=== PATIENT | female | born 1985 | race Hispanic/Latino ===

== ENCOUNTER 2025-03-03 02:42 | Inpatient (IN) | payer SELFPAY ==
[2025-03-03] MEDS ORDERED: Ondansetron PF 4 MG/2 ML Vial ONE (03:35)
[2025-03-03 03:59] LABS: #Basophils 0.06 10x3/uL (0.0-0.2); #Eosinophils 0.14 10x3/uL (0.0-0.7); #Monocytes 0.48 10x3/uL (0.11-0.59); #Neutrophils 4.27 10x3/uL (1.40-6.50); %Basophils 0.8 % (0.0-1.0); %Eosinophils 1.9 % (0.0-10.0); %Lymphocytes 31.2 % (21.0-51.0); %Monocytes 6.6 % (0.0-10.0); %Neutrophils 59.1 % (42.0-75.0); Hematocrit 23.2 % (36.0-47.0); Hemoglobin 6.0 g/dL (12.0-16.0); Mean Corpuscular Hemoglobin 15.6 pg (27.0-31.0); Mean Corpuscular Volume 60.4 fL (78.0-98.0); Platelet Count 267 10x3/uL (130-400); Red Blood Cell (RBC) Count 3.84 mill/uL (4.20-5.40); Reflex for Review?? YES; White Blood Cell (WBC) Count 7.24 10x3/uL (4.8-10.8)
[2025-03-03 04:06] LABS: ALT (SGPT) 13 U/L (Less than 34); AST (SGOT) 38 U/L (11-34); Albumin 3.9 g/dL (3.1-4.5); Alkaline Phosphatase 51 U/L (40-110); Anion Gap 14 mmol/L (10-20); BUN (Urea Nitrogen) 10 mg/dL (7.0-18.7); Bilirubin, Total 0.4 mg/dL (0.3-1.2); Calc. Creatinine Clearance 0 mL/min (70-130); Calcium 8.4 mg/dL (7.8-10.44); Carbon Dioxide 18 mmol/L (22-29); Chloride 110 mmol/L (98-107); Globulin 2.7 g/dL (2.4-3.5); Glucose 86 mg/dL (70-105); Potassium 3.0 mmol/L (3.5-5.1); Sodium 139 mmol/L (136-145)
[2025-03-03 04:07] LABS: Acetaminophen Less than 10 mcg/mL (Less than 10); Salicylate Less than 8.0 mg/dL (Less than 8.0)
[2025-03-03 04:10] LABS: BHCG - Serum Negative (NEGATIVE); Pregs Control Background? CLEAR/WHITE (CLR/WHITE); Pregs Control Bar Appear? YES (CONTROL BAR)
[2025-03-03 04:20] LABS: Anisocytosis SLIGHT = 6-15 cells HPF (0-5); Microcytosis SLIGHT = 6-15 cells HPF (0-5); Nucleated RBC (Manual Ct) 1 % (0); Ovalocytes SLIGHT = 2-5 cells HPF (0-1); Platelet Adequacy Comment Platelets Normal; Polychromasia SLIGHT = 2-3 cells HPF (0-2); Smudge Cells 4.1 %
[2025-03-03] MEDS ORDERED: Potassium Bicarbonate/Cit Ac 20 MEQ TAB ONE (04:22)
[2025-03-03 04:53] LABS: #Basophils 0.06 10x3/uL (0.0-0.2); #Eosinophils 0.06 10x3/uL (0.0-0.7); #Monocytes 0.38 10x3/uL (0.11-0.59); #Neutrophils 4.92 10x3/uL (1.40-6.50); %Basophils 0.9 % (0.0-1.0); %Eosinophils 0.9 % (0.0-10.0); %Lymphocytes 20.0 % (21.0-51.0); %Monocytes 5.6 % (0.0-10.0); %Neutrophils 72.2 % (42.0-75.0); Hematocrit 24.8 % (36.0-47.0); Hemoglobin 6.3 g/dL (12.0-16.0); Mean Corpuscular Hemoglobin 15.4 pg (27.0-31.0); Mean Corpuscular Volume 60.8 fL (78.0-98.0); Platelet Count 248 10x3/uL (130-400); Red Blood Cell (RBC) Count 4.08 mill/uL (4.20-5.40); White Blood Cell (WBC) Count 6.81 10x3/uL (4.8-10.8)
[2025-03-03 05:05] LABS: Bacteria/HPF None Seen HPF (None Seen); CAUTI Indications for Culture Dysuria,urgency,freq; Glucose, Urine (Dipstick) Normal (Negative); Leukocyte 25 Leu/uL (Negative); Protein, Urine (Dipstick) Negative (Neg-Trace); RBC/HPF 0-3 HPF (0-3); Specific Gravity, Urine 1.027 (1.002-1.036); WBC/HPF 0-3 HPF (0-3)
[2025-03-03 05:13] LABS: Cocaine Metabolite Screen Negative (Negative); THC/Cannabinoid Screen Negative (Negative); Tricyclic Screen Negative (Negative)
[2025-03-03 05:15] LABS: Urine Culture Reflex No No
[2025-03-03 05:46] LABS: Iron 9 ug/dL (50-170); Iron Binding Capacity, Total 404 mcg/dL (265-497)
[2025-03-03] MEDS ORDERED: Calcium Carbonate 500 MG ChewTAB PO PRN (06:40)
[2025-03-03] MEDS ORDERED: Ondansetron PF 4 MG/2 ML Vial IVP PRN (06:40)
[2025-03-03] MEDS ORDERED: Electrolyte Replacement Protocol 1 EACH FS SCH (06:45)
[2025-03-03] MEDS ORDERED: Magnesium 2 GM/50 ML(in water) 2 GM in Premix 1 BAG IVPB PRN (07:15)
[2025-03-03] MEDS ORDERED: PHOS-NAK 1 PKT PACK PO PRN (07:15)
[2025-03-03] MEDS ORDERED: Potassium Chloride 20 MEQ in Premix 1 BAG IVPB PRN (07:15)
[2025-03-03] MEDS ORDERED: Iopamidol 370 76% 100 ML VIAL ONE (09:19)
[2025-03-03] MEDS ORDERED: Sodium Ferric Gluconate 250 MG in Sodium Chloride 0.9% 250 ML 250 ML IVPB SCH (12:00)
[2025-03-03 12:23] VITALS: BMI 27.1
[2025-03-03] MEDS: Sodium Ferric Gluconate 250 MG in Sodium Chloride 0.9% 250 ML 250 ML IVPB SCH (12:43)
[2025-03-03] MEDS: Acetaminophen 325 MG TAB PO PRN (13:18)
[2025-03-03 14:59] LABS: Hematocrit 25.6 % (36.0-47.0); Hemoglobin 6.8 g/dL (12.0-16.0)
[2025-03-04 05:18] LABS: #Basophils 0.06 10x3/uL (0.0-0.2); #Eosinophils 0.13 10x3/uL (0.0-0.7); #Monocytes 0.49 10x3/uL (0.11-0.59); #Neutrophils 3.91 10x3/uL (1.40-6.50); %Basophils 0.9 % (0.0-1.0); %Eosinophils 2.0 % (0.0-10.0); %Lymphocytes 29.3 % (21.0-51.0); %Monocytes 7.5 % (0.0-10.0); %Neutrophils 60.0 % (42.0-75.0); Hematocrit 27.9 % (36.0-47.0); Hemoglobin 7.6 g/dL (12.0-16.0); Mean Corpuscular Hemoglobin 17.9 pg (27.0-31.0); Mean Corpuscular Volume 65.8 fL (78.0-98.0); Platelet Count 252 10x3/uL (130-400); Red Blood Cell (RBC) Count 4.24 mill/uL (4.20-5.40); White Blood Cell (WBC) Count 6.52 10x3/uL (4.8-10.8)
[2025-03-04 05:36] LABS: ALT (SGPT) 14 U/L (Less than 34); AST (SGOT) 14 U/L (11-34); Albumin 3.4 g/dL (3.1-4.5); Alkaline Phosphatase 53 U/L (40-110); Anion Gap 8 mmol/L (10-20); BUN (Urea Nitrogen) 11 mg/dL (7.0-18.7); Bilirubin, Total 0.8 mg/dL (0.3-1.2); Calc. Creatinine Clearance 117 mL/min (70-130); Calcium 8.2 mg/dL (7.8-10.44); Carbon Dioxide 22 mmol/L (22-29); Chloride 112 mmol/L (98-107); Globulin 2.3 g/dL (2.4-3.5); Glucose 96 mg/dL (70-105); Potassium 3.8 mmol/L (3.5-5.1); Sodium 138 mmol/L (136-145)
[2025-03-04 05:51] LABS: Microcytosis SLIGHT = 6-15 cells HPF (0-5); Platelet Adequacy Comment Platelets Normal; Polychromasia SLIGHT = 2-3 cells HPF (0-2)
[2025-03-04] MEDS: Folic Acid 1 MG TAB PO SCH (08:23)
[2025-03-04] MEDS: Multivit, Therapeutic 1 TAB PO SCH (08:23)
[2025-03-04] MEDS: Sodium Ferric Gluconate 250 MG in Sodium Chloride 0.9% 250 ML 250 ML IVPB SCH (10:32)
[2025-03-05 05:20] LABS: #Basophils 0.08 10x3/uL (0.0-0.2); #Eosinophils 0.18 10x3/uL (0.0-0.7); #Monocytes 0.58 10x3/uL (0.11-0.59); #Neutrophils 5.16 10x3/uL (1.40-6.50); %Basophils 1.0 % (0.0-1.0); %Eosinophils 2.2 % (0.0-10.0); %Lymphocytes 26.2 % (21.0-51.0); %Monocytes 7.1 % (0.0-10.0); %Neutrophils 63.1 % (42.0-75.0); Hematocrit 29.4 % (36.0-47.0); Hemoglobin 8.0 g/dL (12.0-16.0); Mean Corpuscular Hemoglobin 18.0 pg (27.0-31.0); Mean Corpuscular Volume 66.2 fL (78.0-98.0); Platelet Count 263 10x3/uL (130-400); Red Blood Cell (RBC) Count 4.44 mill/uL (4.20-5.40); White Blood Cell (WBC) Count 8.17 10x3/uL (4.8-10.8)
[2025-03-05 09:01] VITALS: BP 109/65; TEMP 98.1
[2025-03-06] MEDS ORDERED: Thiamine 100 MG TAB PO SCH (09:15)
== END 2025-03-05 15:14 | disposition home or self-care (01) | DRG 812 ==
LOC: ERS 02:42 → T4-A 06:53 → OBSVTOIN 03-04 13:51
PROVIDERS: ADMIT Student in an Organized Health Care Education/Training Program; ATTEND Student in an Organized Health Care Education/Training Program
PROC: 30233N1 Transfusion of Nonautologous Red Blood Cells into Peripheral Vein, Percutaneous Approach (ICD-10-PCS; principal; 2025-03-03)
DX: D64.9 Anemia, unspecified (principal); Z88.8 Allergy status to other drugs, medicaments and biological substances; Z98.890 Other specified postprocedural states; Z90.49 Acquired absence of other specified parts of digestive tract; F15.90 Other stimulant use, unspecified, uncomplicated; F41.9 Anxiety disorder, unspecified; F17.210 Nicotine dependence, cigarettes, uncomplicated; F10.129 Alcohol abuse with intoxication, unspecified; D25.9 Leiomyoma of uterus, unspecified
CPT/HCPCS: 36415; 36430; 70450; 71045; 71260; 72125; 74177; 80053; 80306; 80307; 81001; 82728; 83540; 83550; 84703; 85025; 85060; 86850; 86900; 86901; 93005; 96361; 96365; 96375; 96376; G0378; J2405; J2916; J3411; J7050; J7120; P9016; Q9967